=== PATIENT | male | born 1985 | race Caucasian/White ===

== ENCOUNTER 2018-10-29 12:28 | Emergency (ER) | payer OTHER ==
[~2018-10-29] VITALS: Ht 177.8 cm; Wt 87.6 kg
[2018-10-29 12:31] VITALS: BP 119/74
[2018-10-29] MEDS ORDERED: LIDOCAINE-MPF 1%, 5ML ONE (12:52)
[2018-10-29] MEDS ORDERED: LIDOCAINE-MPF 1%, 5ML INFIL ONE (13:00)
== END 2018-10-29 13:42 | disposition home or self-care (01) ==
LOC: ED 13:36
DX: L02.213 Cutaneous abscess of chest wall (principal)
CPT/HCPCS: 10060; 99283

== ENCOUNTER 2019-05-11 11:16 | Emergency (ER) | payer OTHER ==
[~2019-05-11] VITALS: Ht 174 cm; Wt 77.8 kg
[2019-05-11 11:35] VITALS: BP 133/81
--- NOTE | 2019-05-11 12:05 | NUR ---
FIRST CONTACT WITH PT. PT C/O LATERAL RIGHT PAIN AFTER RE-INJURY YESTERDAY, ROLLED ANKLE 9 MOS AGO, +AMBULATORY. PT'S AOX4. REPS EVEN AND UNLABORED.
--- NOTE | 2019-05-11 12:51 | NUR ---
EMT APPLIED SPLINT. PT TOLERATED WELL.
--- NOTE | 2019-05-11 12:52 | NUR ---
PT GIVEN DC INSTRUCTIONS AND SCRIPTS. PT EDUCATED REGARDING DC MEDICATIONS. NO ACUTE DISTRESS AT DC.
== END 2019-05-11 13:26 | disposition home or self-care (01) ==
LOC: ED 13:19
DX: S92.344A Nondisplaced fracture of fourth metatarsal bone, right foot, initial encounter for closed fracture (principal); S92.354A Nondisplaced fracture of fifth metatarsal bone, right foot, initial encounter for closed fracture; F17.200 Nicotine dependence, unspecified, uncomplicated; X58.XXXA Exposure to other specified factors, initial encounter; Y93.89 Activity, other specified; Y92.89 Other specified places as the place of occurrence of the external cause; Y99.8 Other external cause status
CPT/HCPCS: 29515; 99283